=== PATIENT | female | born 1945 | race Caucasian/White ===

== ENCOUNTER 2019-02-03 18:06 | Emergency (ER) | payer BC ==
[~2019-02-03] VITALS: Ht 157.5 cm; Wt 68.0 kg
[2019-02-03] MEDS ORDERED: NORVASC2.5 M1 (18:33)
[2019-02-03] MEDS ORDERED: LEVOTHYROXINE25 MCG (18:33)
== END 2019-02-03 22:08 | disposition home or self-care (01) ==
LOC: ER 18:06
DX: N20.1 Calculus of ureter (principal); R10.32 Left lower quadrant pain